=== PATIENT | male | born 1990 | race Caucasian/White ===

== ENCOUNTER 2023-10-22 19:56 | Emergency (ER) | payer SELFPAY ==
[~2023-10-22] VITALS: Ht 175.3 cm; Wt 99.8 kg
[2023-10-22 21:03] VITALS: BP 138/94; PULSE 111; RESP 18; TEMP 97.3; O2SAT 99
[2023-10-22] MEDS ORDERED: IBUP-2213 PO (23:16)
[2023-10-22 23:41] VITALS: BP 138/94; PULSE 102; RESP 18; TEMP 97.3; O2SAT 99
== END 2023-10-22 23:41 | disposition home or self-care (01) ==
LOC: MED 19:56
DX: S52.502A Unspecified fracture of the lower end of left radius, initial encounter for closed fracture (principal); S52.612A Displaced fracture of left ulna styloid process, initial encounter for closed fracture; S62.112A Displaced fracture of triquetrum [cuneiform] bone, left wrist, initial encounter for closed fracture; V00.131A Fall from skateboard, initial encounter; Y93.51 Activity, roller skating (inline) and skateboarding; Y92.331 Roller skating rink as the place of occurrence of the external cause; Y99.8 Other external cause status
CPT/HCPCS: 73110; 99283